=== PATIENT | male | born 1935 | race Caucasian/White ===

== ENCOUNTER 2016-11-06 15:27 | Inpatient (IN) | payer MEDICARE, BC ==
[~2016-11-06] VITALS: Ht 180.3 cm; Wt 74.6 kg
[~2016-11-06 15:27] MED LIST: ASPI81TA11 PO; DIGO0.12 PO; FINA5TAB2 PO; GLIP10TA67 PO; LISI2.5T3 PO; METF-382 PO; METO50TA PO; MULT400T PO; NAME10TA PO; OCUVTAB4 PO; SYMB80AE INH; SYNT175T PO; [UNRECOGNIZED DRUG - OTHER]
[2016-11-06] MEDS ORDERED: GADODIAMIDE PF 287 MG/ML 5 ML VIAL (for RAD MRI) IVCONTRAST ONE (15:46)
[2016-11-06 16:00] VITALS: BP 131/63; PULSE 71; RESP 18; TEMP 98.4; O2SAT 99
[2016-11-06] MEDS ORDERED: SENNOSIDES 8.6 MG TAB PO PRN (16:00)
[2016-11-06] MEDS ORDERED: BISACODYL 10 MG SUPP RECTAL PRN (16:00)
[2016-11-06] MEDS ORDERED: SODIUM CHLORIDE 0.9% FLUSH 10 ML FLUSH IV FLUSH PRN (16:00)
[2016-11-06] MEDS ORDERED: DEXTROSE 50% IN WATER 50 ML VIAL(D50) IV PRN (16:00)
[2016-11-06] MEDS ORDERED: ONDANSETRON HCL 4 MG/2 ML VIAL IVP PRN (16:00)
[2016-11-06] MEDS ORDERED: LACTULOSE SYRUP 20 GM/30 ML CUP PO PRN (16:00)
[2016-11-06] MEDS ORDERED: ACETAMINOPHEN 325 MG TAB PO PRN (16:00)
[2016-11-06] MEDS ORDERED: GLUCAGON 1 MG/ML VIAL OTHER PRN (16:00)
[2016-11-06] MEDS: INSULIN ASPART SUPPLEMENTAL SCALE SQ SCH ×2 (16:00→21:02)
[2016-11-06] MEDS ORDERED: NALOXONE HCL 0.4 MG/ML AMP IV PRN (16:00)
[2016-11-06] MEDS ORDERED: MAGNESIUM HYDROXIDE SUSP 30 ML CUP PO PRN (16:00)
[2016-11-06] MEDS ORDERED: SODIUM CHLOR 0.9% 1000 ML INJ 1,000 ML IV SCH (16:15)
--- NOTE | 2016-11-06 16:22 | HHI.HP ---
[facility] Onesimo Burnham M.D. Admission Diagnosis Diagnoses: (1) Sacral pain Diagnosis: Principal (2) Pancytopenia Diagnosis: Principal (3) Hypocalcemia Diagnosis: Principal Chief Complaint: Sacral pain Travel History International Travel<30 Days: No Contact w/Intl Traveler <30 Da: No History of Present Illness This is a 81-year-old male with known history of hypertension, atrial fibrillation, history of CVA, chronic obstructive pulmonary disease, diabetes, dementia, myelodysplastic syndrome history of lung cancer, history of bladder cancer, hypothyroidism who presented to the emergency department in [place] for evaluation of coccyx pain patient indicates that he is been having pain at the end of his tailbone for the last 2 or 3 days that have been excruciating. He states that he went to stand up today and he thought that his bone was going to fall out. For that reason he went to the emergency department for evaluation. Patient had workup performed and was found to have multiple other findings to include pancytopenia, mild hypocalcemia, abdominal CT that showed multiple lung nodules which could represent metastasis, because of those reasons the ER physician recommended the patient be admitted for further evaluation and management. Patient still indicates that he has significant pain in his sacral/ coccyx area. Patient does have a manager building Dr. Parks and oncologist Dr. Paz. He indicates that he has been undergoing treatment for lung cancer by them and his scheduled for another CT scan at the end of this month. Patient states that he did undergo 8 treatments of radiation therapy which the last one was in March and he is undergoing follow-up CT scans. We'll do further evaluation of his bone pain and continue pain control. Review of Systems Musculoskeletal: COMPLAINS OF: Back pain Except as stated in HPI: all other systems reviewed are Neg Past Family Social History Past Medical History Hypertension Atrial fibrillation History CVA Chronic obstructive pulmonary disease Hematochezia Hypothyroidism History of bladder cancer History of lung cancer Myelodysplastic syndrome Dementia Past Surgical History Tonsillectomy Thyroidectomy Bladder surgery for cancer times for Mass removed from neck Tumor removed from spinal cord Right rotator cuff surgery Vocal cord repair Left knee repaired Right hip replacement Lung biopsy Reported Medications Reported Meds & Active Scripts Active Reported [Patanse Nasal [place]] 1 [place] NA BID Symbicort Inh (Budesonide/Formoterol Fumarate) 80-4.5 Mcg/Act Aero 2 Puff INH Q12HR Preservision Areds (Multiple Vitamins W/ Minerals) 1 Tab 1 Tab PO BID Finasteride 5 Mg Tab 5 Mg PO DAILY Do not crush. Synthroid (Levothyroxine Sodium) 175 Mcg Tab 175 Mcg PO DAILY Digoxin 0.125 Mg Tab 0.125 Mg PO HS Metoprolol Tartrate 50 Mg Tab 50 Mg PO BID Lisinopril 2.5 Mg Tab 2.5 Mg PO M// Multaq (Dronedarone) 400 Mg Tab 400 Mg PO BID Namenda (Memantine) 10 Mg Tab 10 Mg PO BID Glipizide XL (Glipizide) 10 Mg Michele 10 Mg PO HS Take with breakfast or first main meal of the day Metformin ER (Metformin HCl) 1,000 Mg Michele 2,000 Mg PO HS With evening meal Allergies: Coded Allergies: Sulfa (Sulfonamide Antibiotics) (Verified Allergy, Severe, "made me unconscious", 11/06/16) morphine (Verified Allergy, Severe, "makes me violently sick", 11/06/16) Family History Reviewed is significant for mother living to write old age of 94 and was in [facility], father at age 54 from myocardial infarction Social History Patient quit smoking cigarettes in 1972, prior to that he smoked 2 pack a cigarettes a day since he was 10 years old. He drinks alcohol socially. Denies any illicit drugs Physical Exam Physical Exam GENERAL: Well-developed, well-nourished, in no acute distress. alert and orientated HEENT: Head is normocephalic without any lesions or masses noted. Facial features are symmetric. Eyes: Pupils equal round reactive to light. Extraocular muscles are intact. Conjunctivae were clear. Oropharyngeal: Pharynx without any erythema edema. Tongue is midline without deviation. Buccal mucosa is moist without any masses or lesions NECK: Supple without any masses. Trachea midline no deviation. No JVD, no bruits are appreciated CARDIAC: Regular rhythm, regular rate. S1/S2 are heard. No murmurs gallops or rubs. LUNGS: Clear to auscultation bilaterally. No wheeze, rhonchi or rales. No use of accessory muscles on inspiration or expiration. ABDOMEN: Soft, nontender. Nondistended. Bowel sounds heard in all 4 quadrants. No organomegaly or masses. Negative rebound, negative guarding EXTREMITIES: No edema, pulses are equal bilaterally. No cyanosis or clubbing NEUROLOGY: Mood and affect appear appropriate. Cranial nerves II through XII grossly intact. Muscle strength 5/5 in upper and lower extremities bilaterally. Deep tendon reflexes are 2+ in upper and lower extremities bilaterally. Caprini VTE Risk Assessment Caprini VTE Risk Assessment: Mod/High Risk (score >= 2) Caprini Risk Assessment Model Point Value = 1 Point Value = 2 Point Value = 3 Point Value = 5 Age 41-60 Minor surgery BMI > 25 kg/m2 Swollen legs Varicose veins or History of unexplained or recurrent spontaneous Oral contraceptives or hormone replacement Sepsis (< 1 month) Serious lung disease, including pneumonia (< 1 month) Abnormal pulmonary function Acute myocardial infarction Congestive heart failure (< 1 month) History of inflammatory bowel disease Medical patient at bed rest Age 61-74 Arthroscopic surgery Major open surgery (> 45 min) Laparoscopic surgery (> 45 min) Malignancy Confined to bed (> 72 hours) Immobilizing plaster cast Central venous access Age >= 75 History of VTE Family history of VTE Factor V Leiden Prothrombin [id number] Lupus anticoagulant Anticardiolipin antibodies Elevated serum homocysteine Heparin-induced thrombocytopenia Other congenital or acquired thrombophilia Stroke (< 1 month) Elective arthroplasty Hip, pelvis, or leg fracture Acute spinal cord injury (< 1 month) Prophylaxis Regimen Total Risk Factor Score Risk Level Prophylaxis Regimen 0-1 Low Early ambulation 2 Moderate Order ONE of the following: *Sequential Compression Device (SCD) *Heparin 5000 units SQ BID 3-4 Higher Order ONE of the following medications: *Heparin 5000 units SQ TID *Enoxaparin/Lovenox 40 mg SQ daily (WT < 150 kg, CrCl > 30 mL/min) *Enoxaparin/Lovenox 30 mg SQ daily (WT < 150 kg, CrCl > 10-29 mL/min) *Enoxaparin/Lovenox 30 mg SQ BID (WT < 150 kg, CrCl > 30 mL/min) AND/OR *Sequential Compression Device (SCD) 5 or more Highest Order ONE of the following medications: *Heparin 5000 units SQ TID (Preferred with Epidurals) *Enoxaparin/Lovenox 40 mg SQ daily (WT < 150 kg, CrCl > 30 mL/min) *Enoxaparin/Lovenox 30 mg SQ daily (WT < 150 kg, CrCl > 10-29 mL/min) *Enoxaparin/Lovenox 30 mg SQ BID (WT < 150 kg, CrCl > 30 mL/min) AND *Sequential Compression Device (SCD) Assessment and Plan Problem List: (1) Sacral pain ICD Code: M53.3 - Sacrococcygeal disorders, not elsewhere classified Plan: Unknown etiology this time, we'll start pain control with [place], Dilaudid as needed. We'll obtain MRI of the lumbar/sacral/coccyx to rule out any possible metastatic bone spread. (2) Pancytopenia ICD Code: D61.818 - Other pancytopenia Plan: Likely secondary to myelodysplastic syndrome, continue to monitor laboratory studies. Unable to compare to any previous records to see if this is stable. Patient to continue to follow-up with his outpatient oncologist (3) Hypocalcemia ICD Code: E83.51 - Hypocalcemia Plan: Unknown etiology this time. Start calcium replacement. Continue monitor calcium level, obtain vitamin D levels, PTH (4) Diabetes ICD Code: E11.9 - Type 2 diabetes mellitus without complications Plan: Patient has undergone contrasted CT, will need to hold metformin for 48 hours. Start Accu-Cheks with sliding scale insulin (5) History of lung cancer ICD Code: Z85.118 - Personal history of other malignant neoplasm of bronchus and lung Plan: CT the abdomen did indicate multiple bilateral irregular pulmonary nodule suspicious for metastatic disease. Patient is undergoing management for lung cancer at this time by his manager building Dr. Parks and oncologist Dr. Paz. Patient will need continued outpatient follow-up with his current physicians Assessment and Plan Chronic medical illnesses to include hypertension, atrial fibrillation, chronic obstructive pulmonary disease, history CVA, dementia: we'll continue home medications DVT prevention: Sequential compression devices Problem Qualifiers (1) Diabetes: Qualified Codes: E11.8 - Type 2 diabetes mellitus with unspecified complications Kory Gandara Nov 06, 2016 16:22 Marlyn De Guzman MD Nov 07, 2016 08:23
[2016-11-06] MEDS: LIDOCAINE HCL 5% PATCH T-DERMAL SCH (17:35)
[2016-11-06] MEDS: HYDROmorphone HCL PF 1 MG/ML VIAL IV PUSH PRN ×2 (17:38→23:33)
[2016-11-06] MEDS: CALCIUM CARBONATE 1.25 GM (CA 500 MG) TAB PO SCH (17:42)
[2016-11-06] MEDS: LISINOPRIL 5 MG TAB PO SCH (17:43)
[2016-11-06 20:22] VITALS: BP 129/65; PULSE 91; RESP 16; TEMP 98.3; O2SAT 99
[2016-11-06] MEDS: SODIUM CHLORIDE 0.9% FLUSH 10 ML FLUSH IV FLUSH SCH (20:44)
[2016-11-06] MEDS: METOPROLOL TARTRATE 50 MG TAB PO SCH (20:45)
[2016-11-06] MEDS: DOCUSATE SODIUM 50 MG/SENNA 8.6 MG TAB PO SCH (20:45)
[2016-11-06] MEDS: DIGOXIN 0.125 MG TAB PO SCH (20:45)
[2016-11-06] MEDS: MEMANTINE HCL 10 MG TAB PO SCH (20:45)
[2016-11-06] MEDS: ZOLPIDEM TARTRATE 5 MG TAB PO PRN (20:45)
[2016-11-06] MEDS: ACETAMINOPHEN/HYDROcodone 325 MG/5 MG TAB PO PRN (20:48)
[2016-11-06] MEDS: DRONEDARONE 400 MG TAB PO SCH (21:18)
[2016-11-06] MEDS: BUDESONIDE-FORMOTEROL 80/4.5 MCG INHALER INH SCH (21:18)
[2016-11-07] VITALS (7 sets, daily range): BP systolic 115–130; BP diastolic 53–61; PULSE 67–80; RESP 16–18; TEMP 96.9–98.7; O2SAT 96–100
[2016-11-07] MEDS: ACETAMINOPHEN/HYDROcodone 325 MG/5 MG TAB PO PRN ×2 (02:45→08:44)
[2016-11-07] MEDS: INSULIN ASPART SUPPLEMENTAL SCALE SQ SCH ×4 (06:25→21:00)
[2016-11-07] MEDS: LEVOTHYROXINE SODIUM 100 MCG TAB PO SCH (06:26)
[2016-11-07] MEDS: LEVOTHYROXINE SODIUM 75 MCG TAB PO SCH (06:26)
[2016-11-07] MEDS: HYDROmorphone HCL PF 1 MG/ML VIAL IV PUSH PRN ×3 (06:26→21:12)
[2016-11-07 07:33] LABS: POTASSIUM 4.5 MEQ/L (3.5-5.1)
[2016-11-07 07:37] LABS: AUTOMATED NEUTROPHIL # 0.7 TH/MM3 (1.8-7.7); BASOPHIL % 0.1 % (0.0-2.0); EOSINOPHIL % 0.5 % (0.0-4.0); LYMPHOCYTE # 0.8 TH/MM3 (1.0-4.8); MEAN CELL VOLUME 79.9 FL (80.0-100.0); MEAN CORPUSCULAR HEMOGLOBIN 26.6 PG (27.0-34.0); MEAN CORPUSCULAR HGB CONC 33.3 % (32.0-36.0); MONO % 6.1 % (0.0-8.0); NEUT % 45.3 % (16.0-70.0); PLATELET COUNT 107 TH/MM3 (150-450); RED BLOOD COUNT 2.59 MIL/MM3 (4.50-5.90); RED CELL DISTRIBUTION WIDTH 19.6 % (11.6-17.2); WHITE BLOOD COUNT 1.6 TH/MM3 (4.0-11.0)
[2016-11-07 07:45] LABS: BICARBONATE 23.7 MEQ/L (21.0-32.0)
[2016-11-07 08:15] LABS: HEMATOCRIT 20.7 % (39.0-51.0); HEMO FLAGS AUTO DIFF
[2016-11-07 08:16] LABS: CALCIUM-PROTEIN CORRECTED 7.8 MG/DL (8.5-10.1)
[2016-11-07 08:25] LABS: BANDS 2 % (0-6); NEUTROPHIL # MANUAL DIFF 0.7 TH/MM3 (1.8-7.7); POLYS (SEG NEUTROPHILS) 44 % (16-70); WBC DIFF SAMPLE 100
[2016-11-07 08:27] LABS: OVALOCYTES 2+ (NORMAL); PLATELET ESTIMATE SMEAR LOW (NORMAL); PLATELET MORPHOLOGY NORMAL (NORMAL); ROULEAUX PRESENT (NORMAL); SCAN/DIFF FINAL DIFF MANUAL; TEARDROP RBCS 2+ (NORMAL)
[2016-11-07] MEDS: CALCIUM CARBONATE 1.25 GM (CA 500 MG) TAB PO SCH (08:44)
[2016-11-07] MEDS: LIDOCAINE HCL 5% PATCH T-DERMAL SCH (08:44)
[2016-11-07] MEDS: BUDESONIDE-FORMOTEROL 80/4.5 MCG INHALER INH SCH ×2 (08:45→21:09)
[2016-11-07] MEDS: FINASTERIDE 5 MG TAB PO SCH (08:45)
[2016-11-07] MEDS: MEMANTINE HCL 10 MG TAB PO SCH ×2 (08:45→21:10)
[2016-11-07] MEDS: METOPROLOL TARTRATE 50 MG TAB PO SCH ×2 (08:45→21:10)
[2016-11-07] MEDS: DOCUSATE SODIUM 50 MG/SENNA 8.6 MG TAB PO SCH ×2 (08:45→21:11)
[2016-11-07] MEDS: ASPIRIN EC 81 MG TABEC PO SCH (08:45)
[2016-11-07] MEDS: SODIUM CHLORIDE 0.9% FLUSH 10 ML FLUSH IV FLUSH SCH ×2 (08:46→21:10)
[2016-11-07] MEDS: DRONEDARONE 400 MG TAB PO SCH ×2 (08:54→21:10)
[2016-11-07] MEDS ORDERED: LORazepam 2 MG/ML VIAL IV PUSH ONE (09:00)
--- NOTE | 2016-11-07 10:54 | RADRPT ---
EXAM DATE/TIME: 11/07/2016 09:21 [facility] COMPARISON: No previous studies available for comparison. INDICATIONS : Metastatic disease. Tailbone pain. CONTRAST: 15 cc Omniscan (gadodiamide) IV MEDICAL HISTORY : Carcinoma, bladder. Carcinoma, lung. SURGICAL HISTORY : Thyroidectomy. Tumor removal spine, vocal cord repair, right hip replacement ENCOUNTER: Initial ACUITY: 4-6 days PAIN SCORE: 6/10 LOCATION: [facility] TECHNIQUE: Multiplanar multisequence MRI examination of the sacrum/coccyx was performed. FINDINGS: BONE/CARTILAGE: There is diffuse decreased T1 signal involving the visualized pelvic and lower lumbar spine bone prabhakar ow in a pattern most suggestive of diffuse marrow replacement from tumor. There is some sparing of th e distal sacrum and coccyx. MUSCLES/TENDONS: All of the visualized muscles and tendons are intact. MISCELLANEOUS: Neurovascular structures are within normal limits. The prostate gland is enlarged and diffusely inhom ogeneous. There is a small amount of free fluid in the pelvis. The prostate measures 6.2 x 7.0 x 8 cm in AP, transverse and cephalocaudal dimension CONCLUSION: 1. Enlarged heterogeneous prostate. 2. Diffuse decreased signal within the bone marrow consistent with an infiltrative process concerning for metastatic disease to bone. Olegario Call MD on November 07, 2016 at 10:47 Board Certified Radiologist. This report was verified electronically.
--- NOTE | 2016-11-07 10:58 | RADRPT ---
EXAM DATE/TIME: 11/07/2016 09:21 [facility] COMPARISON: MRI SACRUM/COCCYX W & W/O CONTRAST, November 07, 2016, 9:21. CT ABDOMEN & PELVIS W CONTRAST, 2016, 10:50. INDICATIONS : Metastatic disease. CONTRAST: 15 cc Omniscan (gadodiamide) IV MEDICAL HISTORY : Carcinoma, lung. Carcinoma, bladder. Diabetes mellitus type 2. Hypertension. SURGICAL HISTORY : Thyroidectomy. Tumor removal spine, vocal cord repair, right hip replacement. ENCOUNTER: Initial ACUITY: 4-6 days PAIN SCORE: 6/10 LOCATION: Paraspinal TECHNIQUE: Multiplanar multisequence MRI of the lumbar spine was performed with and without contrast. FINDINGS: The most caudal appearing lumbar vertebra is numbered as L5. Grade 1 retrolisthesis of L2 on L3 ident ified. There is diffuse disc desiccation. There is a diffuse infiltrative process involving the bone marrow the visualized lumbosacral spine with a diffuse drop in T1 and T2 signal identified. This is c oncerning for diffuse marrow replacement from metastatic disease. Following contrast administration n o heterogeneous enhancement is seen. There is a enhancing lesion at T12 which may reflect a hemangiom a. T12-L1: No canal narrowing. L1-L2: Diffuse disc bulge and postlaminectomy changes with no canal narrowing. No significant foraminal narr owing. L2-L3: A diffuse disc bulge and moderate facet arthropathy ligamentum flavum hypertrophy with moderate canal stenosis. Mild right foraminal narrowing. L3-L4: Moderate facet hypertrophy and ligamentum flavum hypertrophy without significant canal or foraminal n arrowing. L4-L5: Diffuse disc bulge with severe canal stenosis. Severe facet and ligamentum flavum hypertrophy is note d. Mild bilateral foraminal narrowing. Abutment of the L4 exiting nerves and nerve roots within the t hecal sac. L5-S1: The thecal sac has a normal diameter. No evidence of disc bulge or protrusion. The neural foramina are patent bilaterally. CONCLUSION: Findings are concerning for diffuse marrow replacement secondary to metastatic disease to bone. Degen erative changes are noted as above. Olegario Call MD on November 07, 2016 at 10:53 Board Certified Radiologist. This report was verified electronically.
--- NOTE | 2016-11-07 13:08 | HHI.PR ---
Subjective Remarks Patient seen in room Results of MRI discussed with patient and spouse Patient with treated lung ca and bladder ca and new back pain also hg 6.9 today (hx MDS) Objective Vitals Vital Signs Date Time Temp Pulse Resp B/P (MAP) Pulse Ox O2 Delivery O2 Flow Rate FiO2 11/07/16 12:00 96.9 67 18 117/53 (74) 100 11/07/16 08:00 97.5 71 18 120/61 (80) 100 11/07/16 05:00 11/07/16 01:04 97.9 80 16 121/60 (80) 96 11/06/16 20:22 98.3 91 16 129/65 (86) 99 11/06/16 16:00 98.4 71 18 131/63 (85) 99 I/O 11/06/16 11/06/16 11/06/16 11/07/16 11/07/16 11/07/16 07:00 15:00 23:00 07:00 15:00 23:00 Intake Total 240 ml Output Total 300 ml Balance 240 ml -300 ml Intake Oral 240 ml Output Urine Total 300 ml # Voids 2 Result Diagram: 11/07/16 0703 11/07/16 0703 Imaging Last Impressions Sacrum/Coccyx MRI 11/07/16 0000 Signed Impressions: Service Date/Time: Monday, November 07, 2016 09:21 - CONCLUSION: 1. Enlarged heterogeneous prostate. 2. Diffuse decreased signal within the bone marrow consistent with an infiltrative process concerning for metastatic disease to bone. Olegario Call MD Lumbar Spine MRI 11/07/16 0000 Signed Impressions: Service Date/Time: Monday, November 07, 2016 09:21 - CONCLUSION: Findings are concerning for diffuse marrow replacement secondary to metastatic disease to bone. Degenerative changes are noted as above. Olegario Call MD Objective Remarks GENERAL: This is a well-nourished, well-developed patient, in no apparent distress. CARDIOVASCULAR: Regular rate and rhythm without murmurs, gallops, or rubs. RESPIRATORY: Clear to auscultation. Breath sounds equal bilaterally. No wheezes , rales, or rhonchi. GASTROINTESTINAL: Abdomen soft, non-tender, nondistended. Normal active bowel sounds MUSCULOSKELETAL: Extremities without clubbing, cyanosis, or edema. NEURO: Alert & Oriented x4 to person, place, time, situation. Moves all ext x4 A/P Problem List: (1) Sacral pain ICD Code: M53.3 - Sacrococcygeal disorders, not elsewhere classified Plan: may be from Mets? cont pain management will d/w hematology COnt pain control IV dilauded (2) Pancytopenia ICD Code: D61.818 - Other pancytopenia Plan: Likely secondary to myelodysplastic syndrome, Hg 6.9 today and ptn with fatigue (per patient last week was over 8) transfuse and follow up (3) Hypocalcemia ICD Code: E83.51 - Hypocalcemia Plan: Unknown etiology this time. calcium replacement. Continue monitor calcium level, obtain vitamin D levels, PTH (4) Diabetes ICD Code: E11.9 - Type 2 diabetes mellitus without complications Plan: Patient has undergone contrasted CT, will need to hold metformin for 48 hours. Start Accu-Cheks with sliding scale insulin (5) History of lung cancer ICD Code: Z85.118 - Personal history of other malignant neoplasm of bronchus and lung Plan: CT the abdomen did indicate multiple bilateral irregular pulmonary nodule suspicious for metastatic disease. Patient has management for lung cancer at this time by his forestry fire aid Dr. Parks and oncologist Dr. Paz. Patient will need continued outpatient follow-up with his current physicians Problem Qualifiers (1) Diabetes: Qualified Codes: E11.8 - Type 2 diabetes mellitus with unspecified complications Marlyn De Guzman MD Nov 07, 2016 13:07
[2016-11-07] MEDS ORDERED: SODIUM CHLOR 0.9% 250 ML INJ 250 ML IV ONE (13:15)
[2016-11-07] MEDS ORDERED: FUROSEMIDE 20 MG/2 ML VIAL IV ONE (13:30)
--- NOTE | 2016-11-07 15:08 | MB ---
cc: CONNOR MCINTOSH MD DATE OF CONSULTATION: 11/07/2016. REASON FOR CONSULTATION: Patient with diagnosis of myelodysplastic syndrome, now with symptomatic anemia. The patient also has additional oncologic diagnoses including remote history of thyroid carcinoma, remote history of bladder carcinoma and more recent diagnosis of left lower lobe lung carcinoma treated with radiation. Current treatment for myelodysplasia includes Procrit injections once a week and supportive transfusions. CHIEF COMPLAINT: The patient reports pain and tenderness of the anal canal. He denies overt bleeding. HISTORY OF PRESENT ILLNESS: Mr. Moncada is a very pleasant 81-year-old male who is originally from [place], he presently lives at home with his in [facility]. 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 Mr. Moncada reports having had increasing amounts of pain and tenderness involving the perianal area starting mid week last week. He tells me the pain feels like a pressure and at times feel sharp as well. He denies any bleeding. He denies worsening pain when he passes stools. He reports the pain is worse when he wipes. He reported to the emergency department at [facility] and was evaluated by an emergency room physician who advised CT abdomen and pelvis. This revealed no abnormalities. Subsequently a sacral MRI was done to rule out coccygeal fracture. Diffuse abnormalities in bone marrow signal were noted. Furthermore, an MRI of the lumbar spine was done, which indicated additional areas of diffuse bone marrow changes. He was noted to be anemic with a hemoglobin of 7.6 grams/dL on presentation. He was transferred to the [facility] for further workup and management. PAST MEDICAL HISTORY: 1. Thyroid carcinoma in the 1980s; treated surgically. 2. Bladder carcinoma treated with multiple cystoscopies and transurethral bladder tumor resections between 1995 and 2001. 3. 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 4. Myelodysplastic syndrome since 2013, currently on treatment with Procrit injections and supportive transfusions. 5. History of CVA. 6. Atrial fibrillation. 7. Hypertension. 8. COPD. 9. Hypothyroidism. 10. Dementia. PAST SURGICAL HISTORY: 1. Tonsillectomy. 2. Thyroidectomy. 3. Bladder surgeries with transurethral resection of bladder tumors. 4. Tumor removed from the spinal cord. 5. Right rotator cuff surgery. 6. Vocal cord surgery. 7. Left knee repair. 8. Right hip replacement. 9. Lung biopsy. FAMILY HISTORY: Mother lived to . Father at the age of 54 from myocardial infarction. SOCIAL HISTORY: The patient previously was a smoker but quit in 1972. He has smoked two packs a day for close to 25 years. He drinks alcohol socially. ALLERGIES: 1. SULFA DRUGS. 2. MORPHINE. CURRENT INPATIENT MEDICATIONS: 1. Normal saline. 2. Aspirin 81 milligrams once a day. 3. Hydrocodone / acetaminophen one tablet every 6 hours. 4. Dulcolax suppository 10 milligram per rectal for severe pain. 5. Symbicort two puffs q. 12. 6. Os-Donell 500 milligrams p.o. daily. 7. Digoxin 0.125 milligrams at bedtime. 8. Ellen-Colace one tablet p.o. twice a day. 9. Multaq 400 milligrams p.o. twice a day. 10. Finasteride 5 milligrams p.o. daily. 11. Furosemide 20 milligrams IV x1. 12. Hydromorphone 0.2 milligrams IV q. 4 hours. 13. Lactulose 30 mL p.o. as needed for severe pain. 14. Levothyroxine 175 micrograms p.o. daily. 15. Lisinopril 2.5 milligrams Mondays, Wednesdays and Fridays. 16. Sliding scale insulin. 17. Senna. 18. Ambien as needed for insomnia. REVIEW OF SYSTEMS: A thirteen point review of systems was obtained and the following are the pertinent positives: CONSTITUTIONAL: The patient reports fatigue, weakness, difficulty breathing with exertion, denies fevers, chills, night sweats. HEAD, EYES, EARS, NOSE, THROAT: Reports dizziness, denies difficulty swallowing or soreness of throat. RESPIRATORY: Reports exertional dyspnea, denies cough or hemoptysis. CARDIOVASCULAR: Denies angina-like chest pain, PND, orthopnea, lower extremity swelling. GASTROINTESTINAL: Denies nausea, vomiting, diarrhea hematochezia, melena you. GENITOURINARY: No complaints of dysuria, mature urine incontinence. STRIP POLISHER: Denies any focal sensory or motor deficits but feels generally weak. MUSCULOSKELETAL: Reports generalized muscle wasting and loss of muscle mass. No other complaints reported. PHYSICAL EXAMINATION: VITAL SIGNS: Temperature 97 degrees Fahrenheit, heart rate 67 beats a minute, respiratory rate 18, blood pressure 117/53, 02 saturations 100% on room air. GENERAL PHYSICAL APPEARANCE: Mr. Moncada is an elderly male. He appears to be pale and somewhat frail. He is not acutely distressed. HEAD, EYES, EARS, NOSE, THROAT: Head is atraumatic and normocephalic. Conjunctivae are pale. Sclerae anicteric. Extraocular muscles intact. Pupils equal, round and reactive to light and accommodation. ORAL EXAM: No pharyngeal erythema. NECK EXAM: No palpable cervical or supraclavicular lymphadenopathy. RESPIRATORY EXAM: Good air movement bilaterally. No added breath sounds. CARDIOVASCULAR EXAM: Regular rate and rhythm. S1, S2. No obvious murmurs, rubs or gallops. ABDOMINAL EXAM: Thin belly. Soft, nontender and nondistended. No palpable organ enlargement. LOWER EXTREMITIES: No pretibial edema or calf tenderness. STRIP POLISHER: No focal sensory or motor deficits. RECTAL EXAMINATION: There appears to be an inflamed hemorrhoid at the six o'clock position. It is exquisitely tender to touch. Digital rectal examination with prostate examination was not attempted due to the pain. LABORATORY FINDINGS: CBC dated 11/07/2016: WBC count 1.6, hemoglobin 6.9 gm/dl, hematocrit 20.7%, MCV 79.7, platelet count 107, absolute neutrophil count is 0.7. ASSESSMENT: Mr. Moncada is an 81-year-old man with a multiple medical comorbid conditions. His active oncologic diagnosis is myelodysplastic syndrome for which he is on supportive care with transfusions and Procrit injections. He has been under the care of Dr. Paz of [facility]. He has not yet been on Vidaza or Dacogen but tells me that his primary care doctor had been working on procuring iron chelating agents for iron overload related to multiple red cell transfusions. The patient reports his red cell transfusion needs had increased over the past several months. The patient came into the [facility] office for complaints of rectal pain. Based on my clinical exam, he has what appears to be an inflamed and perhaps a thrombosed hemorrhoid. RECOMMENDATIONS: 1. Myelodysplasia: Transfuse 2 units packed red blood cells. I have advised the patient to discuss the role of Vidaza therapy / Dacogen therapy as well as possible restaging bone marrow biopsy to rule out progression of acute myeloid leukemia with her with their primary watch assembly instructor. 2. Symptomatic management for his hemorrhoid with corticosteroid drains and sitz baths. I do not think it needs and incision and drainage. 3. The patient and his are requesting a second opinion with me formally. I will place that request with my new patient office and will request his medical records from his primary oncologist / watch assembly instructor. MD MAYCO Beverly/EJ /2:19 PM /2:46 PM
[2016-11-07] MEDS ORDERED: HYDROCORTISONE ACETATE 25 MG SUPP RECTAL PRN (16:30)
[2016-11-07] MEDS: DIGOXIN 0.125 MG TAB PO SCH (21:11)
[2016-11-08] VITALS (9 sets, daily range): BP systolic 115–156; BP diastolic 53–72; PULSE 72–86; RESP 16–20; TEMP 96.8–98.6; O2SAT 99–100
[2016-11-08] MEDS: ZOLPIDEM TARTRATE 5 MG TAB PO PRN (00:05)
[2016-11-08] MEDS: ACETAMINOPHEN/HYDROcodone 325 MG/7.5 MG TAB PO PRN ×3 (00:05→14:48)
[2016-11-08] MEDS ORDERED: FUROSEMIDE 20 MG/2 ML VIAL IV ONE (01:00)
[2016-11-08] MEDS: HYDROmorphone HCL PF 1 MG/ML VIAL IV PUSH PRN ×3 (02:53→20:06)
--- NOTE | 2016-11-08 04:00 | RADRPT ---
EXAM DATE/TIME: 11/08/2016 03:17 [facility] COMPARISON: No previous studies available for comparison. INDICATIONS : Right thoracic spine pain with abrasion post fall. MEDICAL HISTORY : Carcinoma, lung. Carcinoma, bladder. Diabetes mellitus type 2. Hypertension, Metatstatic disease SURGICAL HISTORY : Thyroidectomy. Tumor removal spine, Vocal cord repair, Right hip replacement ENCOUNTER: Initial ACUITY: 1 day PAIN SCORE: 10/10 LOCATION: Right thoracic spine FINDINGS: Thoracic kyphosis is mildly exaggerated. No subluxation demonstrated. There is anterior and lateral o sseous ridging and bridging syndesmophytes and mild disc space narrowing at most levels. Vertebral yoni dies have normal height. CONCLUSION: Chronic changes as above. No fracture demonstrated of the thoracic spine. Julius Diane MD on November 08, 2016 at 3:56 Board Certified Radiologist. This report was verified electronically.
[2016-11-08] MEDS: LEVOTHYROXINE SODIUM 75 MCG TAB PO SCH (06:36)
[2016-11-08] MEDS: LEVOTHYROXINE SODIUM 100 MCG TAB PO SCH (06:36)
--- NOTE | 2016-11-08 07:15 | HHI.FF ---
Face to Face Verification Diagnosis: (1) History of lung cancer (2) Pancytopenia (3) Diabetes (4) Dementia Physical Therapy Order: Evaluate and Treat, Improve ambulation, Strength and gait training Program Aide Group Work Order: To Evaluate: Living conditions/environment, Support services Order: To Provide: Long range planning I have seen patient Timi Grant on 11/08/16. My clinical findings support the need for the requested home health care services because: Deconditioned w/ increased weakness I certify that my clinical findings support that this patient is homebound because: Unsteady gait/balance Marlyn De Guzman MD Nov 08, 2016 07:15
[2016-11-08 07:37] LABS: AUTOMATED NEUTROPHIL # 1.4 TH/MM3 (1.8-7.7); BASOPHIL % 0.1 % (0.0-2.0); EOSINOPHIL % 0.2 % (0.0-4.0); HEMATOCRIT 25.2 % (39.0-51.0); LYMPH % 34.6 % (9.0-44.0); LYMPHOCYTE # 0.7 TH/MM3 (1.0-4.8); MEAN CELL VOLUME 80.5 FL (80.0-100.0); MEAN CORPUSCULAR HEMOGLOBIN 27.4 PG (27.0-34.0); MEAN CORPUSCULAR HGB CONC 34.1 % (32.0-36.0); MONO % 6.1 % (0.0-8.0); PLATELET COUNT 107 TH/MM3 (150-450); RED BLOOD COUNT 3.13 MIL/MM3 (4.50-5.90); RED CELL DISTRIBUTION WIDTH 18.7 % (11.6-17.2); WHITE BLOOD COUNT 2.2 TH/MM3 (4.0-11.0)
[2016-11-08 07:39] LABS: POTASSIUM 4.4 MEQ/L (3.5-5.1)
[2016-11-08 07:44] LABS: HEMO FLAGS AUTO DIFF
[2016-11-08 08:03] LABS: SCAN/DIFF AUTO DIFF CONFIRMED
[2016-11-08 08:08] LABS: BICARBONATE 22.8 MEQ/L (21.0-32.0)
[2016-11-08] MEDS: INSULIN ASPART SUPPLEMENTAL SCALE SQ SCH ×4 (09:00→21:00)
[2016-11-08] MEDS: LISINOPRIL 5 MG TAB PO SCH (09:02)
[2016-11-08] MEDS: DOCUSATE SODIUM 50 MG/SENNA 8.6 MG TAB PO SCH ×2 (09:02→20:05)
[2016-11-08] MEDS: MEMANTINE HCL 10 MG TAB PO SCH ×2 (09:02→20:04)
[2016-11-08] MEDS: FINASTERIDE 5 MG TAB PO SCH (09:02)
[2016-11-08] MEDS: METOPROLOL TARTRATE 50 MG TAB PO SCH ×2 (09:02→20:04)
[2016-11-08] MEDS: ASPIRIN EC 81 MG TABEC PO SCH (09:02)
[2016-11-08] MEDS: CALCIUM CARBONATE 1.25 GM (CA 500 MG) TAB PO SCH (09:02)
[2016-11-08] MEDS: DRONEDARONE 400 MG TAB PO SCH ×2 (09:03→20:05)
[2016-11-08] MEDS: SODIUM CHLORIDE 0.9% FLUSH 10 ML FLUSH IV FLUSH SCH ×2 (09:03→20:05)
[2016-11-08] MEDS: BUDESONIDE-FORMOTEROL 80/4.5 MCG INHALER INH SCH ×2 (09:05→20:06)
[2016-11-08] MEDS: LIDOCAINE HCL 5% PATCH T-DERMAL SCH (09:10)
[2016-11-08] MEDS ORDERED: KETOROLAC TROMETHAMINE 30 MG/ML (IVP) VIAL IV PUSH ONE (12:30)
--- NOTE | 2016-11-08 12:48 | HHI.PR ---
Subjective Remarks Patient seen and evaluated in follow-up for anemia status post transfusion. Hemoglobin is now 8.6. Overnight patient did have this pain in the back and in the head after a fall in the bathroom. He has a large soft tissue swelling in the apex of his head as well as some tenderness in the back. X-rays done overnight didn't show any issues, however his head is still having a lot of pain. Patient's pain is not controlled he has requested more medicine for his pain. Objective Vitals Vital Signs Date Time Temp Pulse Resp B/P (MAP) Pulse Ox O2 Delivery O2 Flow Rate FiO2 11/08/16 12:00 97.0 72 20 115/53 (73) 100 11/08/16 09:58 16 11/08/16 09:03 16 11/08/16 08:00 97.4 86 20 135/65 (88) 100 11/08/16 04:00 98.0 80 16 152/67 (95) 100 11/08/16 04:00 98.0 80 16 152/67 (95) 100 11/08/16 03:05 98.1 83 18 150/72 (98) 100 11/08/16 02:15 98.6 80 18 156/69 (98) 99 11/08/16 01:34 97.0 73 16 128/61 99 11/08/16 01:11 96.8 72 16 125/61 100 11/07/16 22:13 98.0 68 18 115/58 100 11/07/16 21:41 98.7 73 16 122/55 100 11/07/16 20:00 98.7 73 16 122/55 (77) 100 11/07/16 16:00 96.9 78 18 130/58 (82) 100 I/O 11/07/16 11/07/16 11/07/16 11/08/16 11/08/16 11/08/16 07:00 15:00 23:00 07:00 15:00 23:00 Intake Total 1168 ml 545 ml Output Total 300 ml 350 ml Balance -300 ml 1168 ml 195 ml Intake Oral 650 ml IV Total 518 ml 15 ml Packed Cells 500 ml Blood Product IV Normal Saline Flush 30 ml Output Urine Total 300 ml 350 ml # Voids 5 4 # Bowel Movements 0 2 Result Diagram: 11/08/16 0711/08/16 0700 Objective Remarks Large scapular hematoma GENERAL: This is a well-nourished, well-developed patient, in no apparent distress. CARDIOVASCULAR: Regular rate and rhythm without murmurs, gallops, or rubs. RESPIRATORY: Clear to auscultation. Breath sounds equal bilaterally. No wheezes , rales, or rhonchi. GASTROINTESTINAL: Abdomen soft, non-tender, nondistended. Normal active bowel sounds MUSCULOSKELETAL: Extremities without clubbing, cyanosis, or edema. NEURO: Alert & Oriented x4 to person, place, time, situation. Moves all ext x4 A/P Problem List: (1) Pancytopenia ICD Code: D61.818 - Other pancytopenia Plan: Likely secondary to myelodysplastic syndrome, Status post transfusion with hemoglobin 8.6 today. Continue to follow, continue outpatient management (2) Hypocalcemia ICD Code: E83.51 - Hypocalcemia Plan: Continue to follow calcium after placement (3) Diabetes ICD Code: E11.9 - Type 2 diabetes mellitus without complications Plan: Continue Accu-Cheks and sliding scale, hold metformin (4) History of lung cancer ICD Code: Z85.118 - Personal history of other malignant neoplasm of bronchus and lung Plan: Patient continue with outpatient management with his hematology and pulmonary team and Camilla (5) Fall ICD Code: W19.XXXA - Unspecified fall, initial encounter Plan: Follow-up CT of the head given his head trauma. Patient with multiple complaints of pain will give a low-dose IV Dilaudid for significant pain and continue with minimal narcotics to avoid confusion or worsening impairment in this patient with known dementia and generalized weakness Problem Qualifiers (1) Diabetes: Qualified Codes: E11.8 - Type 2 diabetes mellitus with unspecified complications Marlyn De Guzman MD Nov 08, 2016 12:48
[2016-11-08] MEDS ORDERED: CALCIUM GLUCONATE 500 MG TAB PO SCH (14:00)
[2016-11-08] MEDS ORDERED: WITCH HAZEL 50%/GLYCERIN 12.5% 40 PAD JAR TOPICAL PRN (14:00)
[2016-11-08] MEDS ORDERED: CALCIUM GLUCONATE 10% 1 GM/10 ML VIAL IV PUSH ONE (14:15)
[2016-11-08] MEDS ORDERED: CALCIUM GLUCONATE INJ 1 GM in SODIUM CHLORIDE 0.9% INJ 100 ML IV ONE (16:00)
--- NOTE | 2016-11-08 17:15 | RADRPT ---
EXAM DATE/TIME: 11/08/2016 16:57 [facility] COMPARISON: No previous studies available for comparison. INDICATIONS : Fall this morning, laceration to posterior head. RADIATION DOSE: 63.27 CTDIvol (mGy) MEDICAL HISTORY : Stroke. hypertension, atrial fibrillation, chronic obstructive pulmonary disease, diabetes, dementia , myelodysplastic syndrome, lung cancer,bladder cancer, hypothyroidism SURGICAL HISTORY : Thyroidectomy. Tonsillectomy. ENCOUNTER: Initial ACUITY: 1 day PAIN SCALE: 3/10 LOCATION: occipital head TECHNIQUE: Multiple contiguous axial images were obtained of the head. Using automated exposure control and adj ustment of the mA and/or kV according to patient size, radiation dose was kept as low as reasonably a chievable to obtain optimal diagnostic quality images. DICOM format image data is available electro nically for review and comparison. FINDINGS: CEREBRUM: The ventricles are normal for age. No evidence of midline shift, mass lesion, hemorrhage or acute in farction. No extra-axial fluid collections are seen. POSTERIOR FOSSA: The cerebellum and brainstem are intact. The 4th ventricle is midline. The cerebellopontine angle i s unremarkable. EXTRACRANIAL: The visualized portion of the orbits is intact. SKULL: The calvaria is intact. No evidence of skull fracture. Venous lakes are present in the diploic spac e of the occiput. CONCLUSION: Negative for acute traumatic injury. Mykel Reyna MD FACR on November 08, 2016 at 17:12 Board Certified Radiologist. This report was verified electronically.
[2016-11-08] MEDS: DIGOXIN 0.125 MG TAB PO SCH (20:05)
[2016-11-09] VITALS: BP 106/43; PULSE 72; RESP 16; TEMP 98.5; O2SAT 100
[2016-11-09] MEDS: ACETAMINOPHEN/HYDROcodone 325 MG/7.5 MG TAB PO PRN ×3 (00:05→20:38)
[2016-11-09] MEDS: HYDROmorphone HCL PF 1 MG/ML VIAL IV PUSH PRN (01:46)
[2016-11-09] MEDS: ZOLPIDEM TARTRATE 5 MG TAB PO PRN ×2 (01:51→20:38)
[2016-11-09 05:45] LABS: POTASSIUM 4.3 MEQ/L (3.5-5.1)
[2016-11-09 05:49] LABS: BICARBONATE 24.7 MEQ/L (21.0-32.0)
[2016-11-09] MEDS: LEVOTHYROXINE SODIUM 75 MCG TAB PO SCH (06:13)
[2016-11-09] MEDS: LEVOTHYROXINE SODIUM 100 MCG TAB PO SCH (06:13)
[2016-11-09] MEDS: INSULIN ASPART SUPPLEMENTAL SCALE SQ SCH ×4 (06:19→20:51)
[2016-11-09 07:55] VITALS: BP 140/69; PULSE 77; RESP 20; TEMP 96.7; O2SAT 99
[2016-11-09] MEDS: FINASTERIDE 5 MG TAB PO SCH (07:58)
[2016-11-09] MEDS: DRONEDARONE 400 MG TAB PO SCH ×2 (07:59→20:38)
[2016-11-09] MEDS: METOPROLOL TARTRATE 50 MG TAB PO SCH ×2 (07:59→20:38)
[2016-11-09] MEDS: MEMANTINE HCL 10 MG TAB PO SCH ×2 (07:59→20:38)
[2016-11-09] MEDS: ASPIRIN EC 81 MG TABEC PO SCH (08:00)
[2016-11-09] MEDS: DOCUSATE SODIUM 50 MG/SENNA 8.6 MG TAB PO SCH ×2 (08:00→20:38)
[2016-11-09] MEDS: LIDOCAINE HCL 5% PATCH T-DERMAL SCH (08:05)
[2016-11-09] MEDS: SODIUM CHLORIDE 0.9% FLUSH 10 ML FLUSH IV FLUSH SCH ×2 (08:06→20:38)
[2016-11-09] MEDS: BUDESONIDE-FORMOTEROL 80/4.5 MCG INHALER INH SCH ×2 (08:07→20:37)
[2016-11-09 12:00] VITALS: BP 131/63; PULSE 72; RESP 20; TEMP 96.4; O2SAT 100
--- NOTE | 2016-11-09 12:14 | HHI.PR ---
Subjective Remarks Patient seen and evaluated today in follow-up for mild dysplastic syndrome and for fall yesterday. Pain is much better with IV Toradol. Hemoglobin pending. Patient is recommended for rehabilitation services in a prison facility for which she is agreeable. He has been in another facility before. Objective Vitals Vital Signs Date Time Temp Pulse Resp B/P (MAP) Pulse Ox O2 Delivery O2 Flow Rate FiO2 11/09/16 07:55 96.7 77 20 140/69 (92) 99 11/09/16 00:00 98.5 72 16 106/43 (64) 100 11/08/16 20:00 98.5 79 18 120/55 (76) 99 11/08/16 16:00 98.5 72 20 130/54 (79) 99 11/08/16 15:54 16 11/08/16 13:32 16 I/O 11/08/16 11/08/16 11/08/16 11/09/16 11/09/16 11/09/16 07:00 15:00 23:00 07:00 15:00 23:00 Intake Total 545 ml 360 ml 110 ml 600 ml Output Total 350 ml 350 ml Balance 195 ml 10 ml 110 ml 600 ml Intake Oral 360 ml 600 ml IV Total 15 ml 110 ml Packed Cells 500 ml Blood Product IV Normal Saline Flush 30 ml Output Urine Total 350 ml 350 ml # Voids 4 3 # Bowel Movements 2 0 Result Diagram: 11/08/16 0700 11/09/16 0516 Objective Remarks Large scapular hematoma GENERAL: This is a well-nourished, well-developed patient, in no apparent distress. CARDIOVASCULAR: Regular rate and rhythm without murmurs, gallops, or rubs. RESPIRATORY: Clear to auscultation. Breath sounds equal bilaterally. No wheezes , rales, or rhonchi. GASTROINTESTINAL: Abdomen soft, non-tender, nondistended. Normal active bowel sounds MUSCULOSKELETAL: Extremities without clubbing, cyanosis, or edema. NEURO: Alert & Oriented x4 to person, place, time, situation. Moves all ext x4 A/P Problem List: (1) Pancytopenia ICD Code: D61.818 - Other pancytopenia Plan: Likely secondary to myelodysplastic syndrome, Repeat hemoglobin pending Continue follow-up with his regular vp informatics Dr. Paz (2) Hypocalcemia ICD Code: E83.51 - Hypocalcemia Plan: Continue to follow calcium after placement (3) Diabetes ICD Code: E11.9 - Type 2 diabetes mellitus without complications Plan: Continue Accu-Cheks and sliding scale, hold metformin (4) History of lung cancer ICD Code: Z85.118 - Personal history of other malignant neoplasm of bronchus and lung Plan: Patient continue with outpatient management with his hematology and pulmonary team and Lucile (5) Fall ICD Code: W19.XXXA - Unspecified fall, initial encounter Plan: Follow-up CT of the head is unremarkable. Pain improved with Toradol Discharge Planning OT eval and evaluated for prison facility at discharge Problem Qualifiers (1) Diabetes: Qualified Codes: E11.8 - Type 2 diabetes mellitus with unspecified complications Marlyn De Guzman MD Nov 09, 2016 12:14
[2016-11-09] MEDS ORDERED: TUCKSPAD TOPICAL (12:17)
[2016-11-09] MEDS ORDERED: ANUS25SU RECTAL (12:17)
[2016-11-09] MEDS ORDERED: KETOROLAC TROMETHAMINE 60 MG/2 ML (IM) VIAL IM PRN (13:00)
[2016-11-09] MEDS ORDERED: CALCIUM GLUCONATE INJ 1 GM in SODIUM CHLORIDE 0.9% INJ 100 ML IV ONE (15:00)
[2016-11-09 15:37] VITALS: BP 122/53; PULSE 77; RESP 20; TEMP 98.6; O2SAT 100
[2016-11-09 20:00] VITALS: BP 127/60; PULSE 84; RESP 20; TEMP 98.2; O2SAT 100
[2016-11-09] MEDS: DIGOXIN 0.125 MG TAB PO SCH (20:39)
[2016-11-10] VITALS: BP 122/54; PULSE 72; RESP 20; TEMP 97.3; O2SAT 99
[2016-11-10] MEDS: ACETAMINOPHEN/HYDROcodone 325 MG/7.5 MG TAB PO PRN ×2 (03:38→09:42)
[2016-11-10] MEDS: LEVOTHYROXINE SODIUM 75 MCG TAB PO SCH (05:40)
[2016-11-10] MEDS: LEVOTHYROXINE SODIUM 100 MCG TAB PO SCH (05:40)
[2016-11-10 06:14] LABS: BASOPHIL % 0.1 % (0.0-2.0); EOSINOPHIL % 0.3 % (0.0-4.0); HEMATOCRIT 23.2 % (39.0-51.0); LYMPH % 38.1 % (9.0-44.0); LYMPHOCYTE # 0.7 TH/MM3 (1.0-4.8); MEAN CELL VOLUME 81.6 FL (80.0-100.0); MEAN CORPUSCULAR HEMOGLOBIN 27.4 PG (27.0-34.0); MEAN CORPUSCULAR HGB CONC 33.6 % (32.0-36.0); MONO % 8.3 % (0.0-8.0); NEUT % 53.2 % (16.0-70.0); PLATELET COUNT 100 TH/MM3 (150-450); RED BLOOD COUNT 2.85 MIL/MM3 (4.50-5.90); RED CELL DISTRIBUTION WIDTH 19.5 % (11.6-17.2); WHITE BLOOD COUNT 1.8 TH/MM3 (4.0-11.0)
[2016-11-10] MEDS: HYDROmorphone HCL PF 1 MG/ML VIAL IV PUSH PRN (06:28)
[2016-11-10 06:43] LABS: HEMO FLAGS AUTO DIFF
[2016-11-10 07:36] LABS: KERATOCYTES OCC (NORMAL); OVALOCYTES 2+ (NORMAL); PLATELET ESTIMATE SMEAR LOW (NORMAL); PLATELET MORPHOLOGY NORMAL (NORMAL); TEARDROP RBCS 1+ (NORMAL)
[2016-11-10 07:37] LABS: SCAN/DIFF AUTO DIFF CONFIRMED
[2016-11-10 08:00] VITALS: BP 135/57; PULSE 75; RESP 19; TEMP 98; O2SAT 100
[2016-11-10] MEDS: LISINOPRIL 5 MG TAB PO SCH (09:00)
[2016-11-10] MEDS: BUDESONIDE-FORMOTEROL 80/4.5 MCG INHALER INH SCH (09:41)
[2016-11-10] MEDS: LIDOCAINE HCL 5% PATCH T-DERMAL SCH (09:42)
[2016-11-10] MEDS: DRONEDARONE 400 MG TAB PO SCH (09:43)
[2016-11-10] MEDS: METOPROLOL TARTRATE 50 MG TAB PO SCH (09:43)
[2016-11-10] MEDS: FINASTERIDE 5 MG TAB PO SCH (09:43)
[2016-11-10] MEDS: DOCUSATE SODIUM 50 MG/SENNA 8.6 MG TAB PO SCH (09:43)
[2016-11-10] MEDS: ASPIRIN EC 81 MG TABEC PO SCH (09:43)
[2016-11-10] MEDS: MEMANTINE HCL 10 MG TAB PO SCH (09:43)
[2016-11-10] MEDS: SODIUM CHLORIDE 0.9% FLUSH 10 ML FLUSH IV FLUSH SCH (09:44)
[2016-11-10] MEDS: INSULIN ASPART SUPPLEMENTAL SCALE SQ SCH ×2 (09:49→11:00)
[2016-11-10 12:00] VITALS: BP 130/68; PULSE 73; RESP 17; TEMP 98.2; O2SAT 99
[2016-11-10] MEDS ORDERED: WALKER WHEELS/F1 MIS (15:35)
--- NOTE | 2016-11-10 15:43 | HHI.DS ---
Discharge Summary Admission Date Nov 07, 2016 at 13:03 Discharge Date: Nov 10, 2016 Admitting Diagnosis (1) Pancytopenia ICD Code: D61.818 - Other pancytopenia (2) Hypocalcemia ICD Code: E83.51 - Hypocalcemia (3) Diabetes ICD Code: E11.9 - Type 2 diabetes mellitus without complications (4) History of lung cancer ICD Code: Z85.118 - Personal history of other malignant neoplasm of bronchus and lung (5) Fall ICD Code: W19.XXXA - Unspecified fall, initial encounter Procedures None Brief History - From Admission This is a 81-year-old male with known history of hypertension, atrial fibrillation, history of CVA, chronic obstructive pulmonary disease, diabetes, dementia, myelodysplastic syndrome history of lung cancer, history of bladder cancer, hypothyroidism who presented to the emergency department in [place] for evaluation of coccyx pain patient indicates that he is been having pain at the end of his tailbone for the last 2 or 3 days that have been excruciating. He states that he went to stand up today and he thought that his bone was going to fall out. For that reason he went to the emergency department for evaluation. Patient had workup performed and was found to have multiple other findings to include pancytopenia, mild hypocalcemia, abdominal CT that showed multiple lung nodules which could represent metastasis, because of those reasons the ER physician recommended the patient be admitted for further evaluation and management. Patient does have a military communications specialist Dr. Parks and oncologist Dr. Paz. He indicates that he has been undergoing radiation treatment for lung cancer by them and his scheduled for another CT scan at the end of this month. Patient states that he did undergo 8 treatments of radiation therapy which the last one was in March and he is undergoing follow-up CT scans. CBC/BMP: 11/10/16 0547 11/09/16 0516 Significant Findings Laboratory Tests Test 11/08/16 07:00 11/09/16 05:16 11/10/16 05:47 White Blood Count 2.2 TH/MM3 (4.0-11.0) 1.8 TH/MM3 (4.0-11.0) Red Blood Count 3.13 MIL/MM3 (4.50-5.90) 2.85 MIL/MM3 (4.50-5.90) Hemoglobin 8.6 GM/DL (13.0-17.0) 7.8 GM/DL (13.0-17.0) Hematocrit 25.2 % (39.0-51.0) 23.2 % (39.0-51.0) Red Cell Distribution Width 18.7 % (11.6-17.2) 19.5 % (11.6-17.2) Platelet Count 107 TH/MM3 (150-450) 100 TH/MM3 (150-450) Neutrophils # (Auto) 1.4 TH/MM3 (1.8-7.7) 1.0 TH/MM3 (1.8-7.7) Lymphocytes # (Auto) 0.7 TH/MM3 (1.0-4.8) 0.7 TH/MM3 (1.0-4.8) Blood Urea Nitrogen 29 MG/DL (7-18) 35 MG/DL (7-18) Random Glucose 170 MG/DL (74-106) 149 MG/DL (74-106) Calcium Level 8.0 MG/DL (8.5-10.1) 7.8 MG/DL (8.5-10.1) Estimat Glomerular Filtration Rate 58 ML/MIN (>89) 49 ML/MIN (>89) Creatinine 1.40 MG/DL (0.60-1.30) Monocytes (%) (Auto) 8.3 % (0.0-8.0) Platelet Estimate LOW (NORMAL) Tear Drop Cells 1+ (NORMAL) Ovalocytes 2+ (NORMAL) PE at Discharge GENERAL: Well-nourished, well-developed elderly patient. SKIN: Warm and dry, no rash anteriorly. HEAD: Normocephalic. small abrasion at occiput with scan. EYES: No scleral icterus. No injection or drainage. NECK: Supple, trachea midline. No JVD or lymphadenopathy. CARDIOVASCULAR: Regular rate and rhythm without murmurs, gallops, or rubs. RESPIRATORY: Breath sounds equal bilaterally. No accessory muscle use. GASTROINTESTINAL: Abdomen soft, non-tender, nondistended. EXTREMITIES: trace pedal edema. NEUROLOGICAL: Awake, alert, and oriented x 3. Non-focal. Hospital Course The patient was admitted to the hospital, hematology was consulted. The patient was transfused 2 units packed red blood cells for hemoglobin of 6.9. Hemoglobin today is 7.8. He was treated for his hemorrhoid with hydrocortisone suppositories and witch nhung pad. The patient had a fall in the bathroom during his hospitalization. Initially plans were made for him to go to a prison facility. However today the patient tells me that he refuses to go to prison facility and insists on being discharged home. He tells me he will go home whether or not I discharged him. I reviewed his physical therapy now which showed that he ambulated 200 feet with fair minus balance using a front wheeled walker. The patient uses a cane at home. I discussed with his as well as with case management. We will arrange home health care and a front wheeled walker. Recommend follow-up with his primary care physician next week. He will also be following up with Dr. Dougherty of hematology. Pt Condition on Discharge: Stable Discharge Disposition: Disch w/ Home Health Serv Discharge Time: > 30 minutes Discharge Instructions DIET: Follow Instructions for: As Tolerated, No Restrictions Activities you can perform: Regular-No Restrictions Follow up Referrals: PCP Follow-up - 1 Week New Medications: Walker with Front Wheels (Walker with Front Wheels) 1 Mis Mis EA .ROUTE DIRECTED, #1 0 Refills Hydrocortisone Supp (Anusol-Hc Supp) 25 Mg Supp 25 MG RECTAL BID PRN for rectal pain, #15 SUPP Witch Nhung/Glycerin (A.e.r. Witch Nhung) 12.5 %-50 % Pad 1 APPLIC TOPICAL UNSCH PRN for HEMORRHOIDS, #30 PAD Continued Medications: Aspirin DR (Aspirin EC) 81 Mg Tabdr 81 MG PO DAILY, TAB 0 Refills Budesonide-Formoterol Inh (Symbicort Inh) 80-4.5 Mcg/Act Aero 2 PUFF INH Q12HR for Asthma Management, #1 INHALER 0 Refills Digoxin (Digoxin) 0.125 Mg Tab 0.125 MG PO HS for Regulate Heart Beat, #30 TAB 0 Refills Dronedarone (Multaq) 400 Mg Tab 400 MG PO BID for Regulate Heart Beat, TAB 0 Refills Finasteride (Finasteride) 5 Mg Tab 5 MG PO DAILY for Manage Prostate Problems, #30 TAB 0 Refills Do not crush. Glipizide ER (Glipizide XL) 10 Mg Michele 10 MG PO HS for Blood Sugar Management, #30 TAB 0 Refills Take with breakfast or first main meal of the day Levothyroxine (Synthroid) 175 Mcg Tab 175 MCG PO DAILY for Thyroid, #30 TAB 0 Refills Lisinopril (Lisinopril) 2.5 Mg Tab 2.5 MG PO //, #30 TAB 0 Refills Memantine (Namenda) 10 Mg Tab 10 MG PO BID for Alzheimer Disease, #30 TAB 0 Refills Metformin ER (Metformin ER) 1,000 Mg Michele 2000 MG PO HS for Blood Sugar Management, #60 TAB 0 Refills With evening meal Metoprolol Tartrate (Metoprolol Tartrate) 50 Mg Tab 50 MG PO BID, #60 TAB 0 Refills Multiple Vitamins W/ Minerals (Preservision Areds) 1 Tab 1 TAB PO BID for Nutritional Supplement, TAB 0 Refills [Patanse Nasal Riparius] () 1 SPRAY NA BID Nettie Kim MD Nov 10, 2016 15:43
== END 2016-11-10 16:28 | disposition home health service (06) | DRG 552 ==
LOC: PHEDDLT 15:27 → PH3A 15:45 → INTOOBSV 15:45 → OBSVTOIN 11-07 13:03
PROVIDERS: ADMIT Family Medicine; ATTEND Family Medicine
PROC: 30233N1 Transfusion of Nonautologous Red Blood Cells into Peripheral Vein, Percutaneous Approach (ICD-10-PCS; principal; 2016-11-07)
DX: M53.3 Sacrococcygeal disorders, not elsewhere classified (principal); D61.818 Other pancytopenia; E83.51 Hypocalcemia; F03.90 Unspecified dementia, unspecified severity, without behavioral disturbance, psychotic disturbance, mood disturbance, and anxiety; J44.9 Chronic obstructive pulmonary disease, unspecified; C34.90 Malignant neoplasm of unspecified part of unspecified bronchus or lung; Z92.3 Personal history of irradiation; S09.90XA Unspecified injury of head, initial encounter; I48.91 Unspecified atrial fibrillation; I10 Essential (primary) hypertension; E11.9 Type 2 diabetes mellitus without complications; Z79.84 Long term (current) use of oral hypoglycemic drugs; D46.9 Myelodysplastic syndrome, unspecified; E03.9 Hypothyroidism, unspecified; K64.9 Unspecified hemorrhoids; W18.30XA Fall on same level, unspecified, initial encounter; Y93.9 Activity, unspecified; Y92.231 Patient bathroom in hospital as the place of occurrence of the external cause; Z85.850 Personal history of malignant neoplasm of thyroid; Z86.73 Personal history of transient ischemic attack (TIA), and cerebral infarction without residual deficits; Z96.641 Presence of right artificial hip joint; Z87.891 Personal history of nicotine dependence; Z85.51 Personal history of malignant neoplasm of bladder
CPT/HCPCS: 36430; 70450; 72020; 72158; 72197; 74177; 80048; 80053; 81001; 82306; 82652; 82948; 83605; 83690; 83735; 83970; 84155; 85007; 85025; 85027; 85610; 85730; 86077; 86850; 86860; 86870; 86880; 86900; 86901; 86902; 86920; 86921; 86922; 93005; 96361; 96374; A9579; J0610; J1170; J1815; J1885; J1940; J2060; J2543; J3010; J7030; J7050; P9016; Q9963; Q9967